=== PATIENT | male | born 1935 | race Caucasian/White ===

== ENCOUNTER 2017-02-10 11:10 | Inpatient (IN) | payer OTHER ==
[~2017-02-10] VITALS: Ht 170.2 cm; Wt 92.1 kg
--- NOTE | ~2017-02-10 | HC ---
[facility] [place] [address] CONSULTATION Name: ARLINE COLE Room #: 236-P [facility] IN M.R.#: [id number] Admission: 02/10/17 Attend Phys: Usman Tabor MD Discharge: Date of : 35 Report #: [id number] THIS REPORT FOR: //name// CC: Usman Casas REASON FOR CONSULTATION: Acute kidney injury post coronary artery bypass graft. REASON FOR THE PRESENTATION: Chest pain. HISTORY OF PRESENT ILLNESS: The patient is an 81-year-old who is not able to provide me with history as he is currently intubated and sedated. All of the details of the history were obtained from the charts. He is an 81-year-old who was transferred from [facility]. He had a cardiac catheterization that revealed significant 3-vessel disease. He had unstable angina symptoms. As I have stated, cardiac catheterization revealed a 3-vessel disease and the patient underwent coronary artery bypass graft procedure on the . He also had a left atrial Spencer-Maze procedure with a left atrial appendage ligation. The patient is not known to have any previous kidney problems. In fact, his creatinine preoperatively was 0.9. Unfortunately, the patient developed significant hypotension in the postoperative period and he ended up having a right-sided hemothorax. Chest tube was placed and he had to be reintubated yesterday. Because of the hypertension his creatinine has drifted up significant and was up to 1.9 this morning. I was consulted to manage his acute kidney injury. PAST MEDICAL HISTORY: 1. Hypertension. 2. Coronary artery disease. 3. Atrial fibrillation. 4. Collado esophagus. SOCIAL HISTORY: Retired mailman. Never a smoker. No drug or alcohol abuse. FAMILY HISTORY: Daughter had coronary artery disease. REVIEW OF SYSTEMS: I was not able to obtain the review of systems from the patient as he is currently intubated. MEDICATIONS: The patient is currently on the followin. Lasix. 2. Metoprolol. 3. Morphine. 4. Half normal saline. 5. Pepcid. 6. Potassium. 7. Magnesium. [address] [address] CONSULTATION Name: ARLINE COLE Fabio Room #: 236-P [facility] IN ..#: [id number] Admission: 02/10/17 Attend Phys: Usman Tabor MD Discharge: Date of : 35 Report #: [id number] Outpatient medications included the followin. Lisinopril. 2. Omeprazole. PHYSICAL EXAMINATION: GENERAL: The patient is intubated on Levophed. VITAL SIGNS: Blood pressure is 115/47, temperature 36.4, pulse rate is 61. HEAD AND NECK: No jugular venous distention, no bruit, no thyromegaly. CHEST: Decreased air entry bilaterally, scars from the surgery. Chest tubes and pericardial tubes are in. CARDIOVASCULAR: Regular with no rub detected. ABDOMEN: Soft, nontender. LOWER EXTREMITIES: No edema. LABORATORY VALUES: Reviewed. Creatinine is up to 1.9 from 1.7 yesterday. Imaging including his chest x-ray were reviewed. ASSESSMENT, IMPRESSION, PLAN: 1. Acute kidney injury. 2. Hypotension. 3. Status post coronary artery bypass graft with a modified Spencer-Maze procedure. 4. Hemothorax. 5. The patient's acute kidney injury is well explained by the hypotensive episodes he went through. 6. Volume resuscitation. 7. Blood transfusion. 8. P.r.n. diuretics. 9. Avoid nephrotoxins. 10. Watch blood pressure and avoid further hypotensive episode. 11. Defer the management of his post-coronary artery bypass graft course to the surgical team. <ELECTRONICALLY SIGNED> By: Jazmine Chiu MD 02/16/17 0821 1322 1744 Jazmine Chiu MD /nt
--- NOTE | ~2017-02-10 | S ---
[facility] [address] [place] [address] SURGICAL PATH RPT PROCEDURE Name: ARLINE FLORES Room #: 236-P [facility] IN M.R.#: [id number] Admission: 02/10/17 Date of : 35 Discharge: 02/17/17 Report #: [id number] Path Case #: [id number] PATHOLOGY REPORT COLLECTION DATE: 02/17/2017 RECEIVED DATE: 02/17/2017 SUBMITTING PHYS: Dr. Mary Montgomery OTHER PHYS: SPECIMEN(S) RECEIVED: A.Peripheral smear * * * * * * * * * * * * FINAL DIAGNOSIS: Peripheral blood smear: - Moderate normocytic anemia, mild leukocytosis/neutrophilia with mild left shift and moderate thrombocytopenia with circulating nucleated red blood cells. (see comment) COMMENT: Overall, the peripheral blood has moderate normocytic anemia, mild leukocytosis/neutrophilia with mild left shift and moderate thrombocytopenia. Occasional nucleated red blood cells are also seen. The etiology of the findings is unclear based entirely on slide review. Potential causes of normocytic anemia include anemia of chronic disease, treated and/or compensated vitamin and mineral deficiencies, acute blood loss, dilutional and primary bone marrow disorders. Potential causes of leukocytosis/neutrophilia with mild left shift include infections, drug reactions, and other inflammatory disorders. Potential causes of thrombocytopenia include immune and non-immune platelet destruction, drug and/or toxic exposures, blood loss, dilutional, and primary bone marrow disorders. Correlation with clinical history and additional laboratory data is recommended. (CLW:; 02/17/2017) PATHOLOGIST: Enedelia Fitzpatrick M.D. REPORT ELECTRONICALLY SIGNED BY: Enedelia Fitzpatrick M.D. DATE/TIME: 02/17/2017 21:48 * * * * * * * * * * * * MICROSCOPIC DESCRIPTION: CBC Data (02/17/17): WBC 14,800 /uL, RBC 3.09, hemoglobin 9.7 g/dL, hematocrit 28.7%, MCV 92.7 fL, MCH 31.4 pg, MCHC 33.9 g/dL, RDW 13.7%. Platelet count 74,000 /uL. White blood cell differential: segs 78.8%, lymphs 10.6%, monos 10.2%, eos 0.2%, basos 0.2%, metas 3%, and 7 NRBCs/100 WBCs. Peripheral Blood Smear: [address] [address] SURGICAL PATH RPT PROCEDURE Name: ARLINE FLORES Room #: 236-P [facility] IN .R.#: [id number] Admission: 02/10/17 Date of : 35 Discharge: 02/17/17 Report #: [id number] Path Case #: [id number] Cytomorphological examination of the Shukla's stained peripheral blood smear confirms the provided data. Red blood cells show moderate normocytic anemia with mild anisocytosis. No significant poikilocytosis is identified. No schistocytes or microspherocytes are seen. White blood cells are mildly increased in number. They are predominantly segmented neutrophils and are without significant dyspoiesis. There is a mild left shift with occasional metamyelocytes noted on scanning. No blasts or Jose rods are seen. Lymphocytes are predominantly small, round, and mature appearing with condensed chromatin and scant cytoplasm with admixed large granular lymphocytes. Monocytes are mature. Platelets are moderately decreased in number and mainly normal in morphology with rare larger platelets noted. Scattered nucleated red blood cells are seen. GROSS PATHOLOGY: Received are two Shukla's stained peripheral blood smear slides labeled, "Arline Flores" (CLW:mgclement; 02/17/2017) CLINICAL HISTORY: 81 year-old man with anemia, leukocytosis, and thrombocytopenia. Morphologic review of the peripheral blood smear is requested by the patient's physician. INITIAL CPT CODE(S): A; [place] Professional services performed by [facility] at [facility] [address], [place] [address] Technical services performed by [facility] at [address] [place] [address], [address], [place] [address]. [facility] [address] [place] [address] PHONE: [phone] DIRECTOR: Dsuty Guidry M.D. * * * END OF REPORT * * *
--- NOTE | ~2017-02-10 | O ---
[facility] [place] [address] OPERATIVE REPORT Name: ARLINE COLE Room #: 236-P [facility] IN M.R.#: [id number] Admission: 02/10/17 Attend Phys: Usman Tabor MD Discharge: Date of : 35 Report #: [id number] THIS REPORT FOR: //name// CC: Usman Casas DATE OF SERVICE: 02/12/2017 PREOPERATIVE DIAGNOSES: 1. Coronary artery disease. 2. Unstable angina. 3. Atrial fibrillation/flutter. 4. Mild cardiomyopathy. POSTOPERATIVE DIAGNOSES: 1. Coronary artery disease. 2. Unstable angina. 3. Atrial fibrillation/flutter. 4. Mild cardiomyopathy. OPERATIVE PROCEDURE PERFORMED: 1. Coronary artery bypass grafting x 3 with left internal mammary artery to the LAD, a left internal mammary artery Y graft to diagonal vessel, and saphenous vein graft to PDA. 2. Left atrial modified Spencer maze procedure. 3. Left atrial appendage ligation with AtriClip device. SURGEON: Alpesh Guardado MD CRANE MAN: ULYSSES ANESTHESIA: General. OPERATIVE INDICATIONS: The patient is an 81-year-old male who has presented with symptoms of chest pain with minimal exertion. The patient had been experiencing chest pain for approximately 7 months now. He underwent evaluation at [facility] and found to have severe multivessel coronary artery disease, complete occlusion of the right coronary artery, high grade stenosis in the LAD and diagonal and a very small nondominant circumflex coronary system. The patient had evidence of cardiomyopathy present. The ejection fraction noted of about 45-50%. The patient also was noted to be in atrial fib/atrial flutter preoperatively, but it is of an undetermined length of period. The patient was transferred to [facility], maintained on a heparin drip and brought to the operating room now for coronary artery bypass grafting and left atrial ablation after informed consent was obtained. [facility] [address] [place] [address] OPERATIVE REPORT Name: ARLINE COLE Room #: 236-P [facility] IN [facility]#: [id number] Admission: 02/10/17 Attend Phys: Usman Tabor MD Discharge: Date of : 35 Report #: [id number] OPERATIVE SUMMARY: The patient was brought into the operating room and placed on the OR table in supine position. After anesthesia was induced via the general endotracheal route and monitoring lines have been positioned, the patient was prepped and draped in sterile fashion with chlorhexidine. A median sternotomy incision was made. The left internal mammary artery was harvested in standard fashion. Concomitantly, saphenous vein was harvested from the left lower extremity using endoscopic technique. We opened the pericardium systemically, anticoagulated the patient with heparin. Cannulae were placed in ascending aorta and the right atrium. An antegrade cardioplegic cannula was positioned. Cardiopulmonary bypass was begun. We then placed a retrograde cardioplegia cannula. Under low flow conditions, the aorta was crossclamped and the heart was arrested with approximately 500 mL cold antegrade cardioplegia. We encountered distention of the left ventricle due to the presence of aortic insufficiency, which was felt to be mild to moderate preoperatively. We then switched cardioplegia to retrograde and obtained diastolic arrest. We continued to give cardioplegia throughout the rest of this case both retrograde and antegrade down grafts and the antegrade down the aortic root. We first performed left atrial ablation. We performed albation lines around each pulmonary vein sets. We connected the pulmonary vein sets superiorly and inferiorly to create a box. We set one line up to the left atrial appendage and one encircling the left atrial appendage. We later performed the isthmus line after the retrograde catheter had been removed. At this time, also we placed an AtriClip device on the left atrial appendage. We then opened up the coronary vessels looking at the PDA first, a large vessel, greater than 2 mm in size. We took a segment of saphenous vein and anastomosed it to the PDA in end-to-side fashion with 7-0 Prolene. This vein segment was short as the vein became sclerotic and small. We had another segment of vein that was larger and we used it to anastomose to the ascending aorta and this was done with 6-0 Prolene. Next, we positioned the heart for grafting the LAD and the diagonal. We took the distal aspect of the left internal mammary artery and we grafted it in end-to-side fashion to the diagonal vessel. We amputated the vessel about 2 cm proximal and then opened up the LAD. This too was a good vessel size about 1.9-2 mm in size. We anastomosed the PONCE in situ to the LAD. Once this was completed, we tacked the pedicle to the epicardium with 6-0 Prolene. We then anastomosed the PONCE graft to the diagonal to the in situ PONCE and this was done in end-to-side fashion with 7-0 Prolene. Warm cardioplegia was given both retrograde and antegrade. Care was taken to deair the ascending aorta and the vein graft. The crossclamp was released to begin the period of reperfusion. Prior to releasing crossclamp, the two segments of saphenous vein were sewed together. We placed atrial and ventricular pacing wires and we paced the patient initially. The patient was rewarmed to 37 degree centigrade and 3 successive doses of calcium and a single dose of magnesium were given over 3-5 minute intervals. After a suitable period of reperfusion, the lungs were reinflated. The patient was weaned from cardiopulmonary bypass on a low dose [facility] [address] [place] [address] OPERATIVE REPORT Name: ARLINE COLE Room #: 236-P [facility] IN M.R.#: [id number] Admission: 02/10/17 Attend Phys: Usman Tabor MD Discharge: Date of : 35 Report #: [id number] Dobutrex infusion. We later added Primacor infusion. Protamine was given to reverse the heparin, decannulation was affected. Once satisfactory hemostasis was achieved, we placed two 32-Mauritanian chest tubes in the anterior mediastinum and 24 Dru drain in left pleural space bringing them all out through separate stab incisions. The sternum was closed with #7 wire. The fascia, subcutaneous and skin were closed in multiple layers with absorbable suture. The procedure was completed, the patient was taken to the ICU in stable condition. Cardiopulmonary bypass time and cross clamp time is not available to me at the time of this dictation. <ELECTRONICALLY SIGNED> By: Alpesh Guardado MD 02/13/17 1126 1537 1612 Alpesh Guardado MD /nt
--- NOTE | ~2017-02-10 | D ---
[facility] [place] [address] DISCHARGE SUMMARY Name: ARLINE COLE Room #: 236-P [facility] IN M.R.#: [id number] Admission: 02/10/17 Attend Phys: Usman Tabor MD Discharge: 02/17/17 Date of : 35 Report #: [id number] THIS REPORT FOR: //name// CC: Usman Tabor Dr. Co Dr. Ulises Atkinson MD [facility] Alpesh Casas DATE OF SERVICE: 02/17/2017 DIAGNOSES: 1. Coronary artery disease status post coronary artery bypass grafting x 3. 2. Right lower extremity ischemia, acute. 3. Attempt ____ right femoral artery embolectomy, intraoperative arteriography on 02/17/2017. 4. Thrombocytopenia. 5. Atrial flutter. 6. Status post left atrial appendage ligation and maze. 7. Mild cardiomyopathy with ejection fraction of 40%. 8. Acute kidney injury, which is resolved. 9. Postoperative hyperglycemia, hemoglobin A1c of 5.9. 10. Anemia, postop. 11. Postop ventilator dependent. 12. ____. PROCEDURES: 1. CABG x 3. 2. Right popliteal artery embolectomy, intraoperative arteriography on 02/17/2017. HOSPITAL COURSE: The patient is an 81-year-old male with history of gastroesophageal reflux disease, recent diagnosis of atrial flutter, hypertension, Collado's esophagus, was transferred to [facility] from [facility] after undergoing diagnostic coronary catheterization. The patient was admitted with chest pain. He had a cardiac cath, which showed 3-vessel coronary artery disease. The patient was evaluated by Dr. Alpesh Guardado and the patient underwent coronary artery bypass grafting x 3 with left internal mammary artery to the LAD, left internal mammary artery graft to diagonal vessel and saphenous vein graft to PDA along with left atrial modified maze procedure and left atrial appendage ligation with AtriClip device on 02/12/2017. The patient was seen postoperatively by Dr. Rainey from Pulmonary. Postoperatively, the patient developed right pleural effusion, subsequent chest tube was placed and he was reintubated. The patient's hospital course was also marked by renal failure that has improved and his creatinine is back to normal. [address] [address] DISCHARGE SUMMARY Name: ARLINE COLE Room #: 236-P [facility] IN M.R.#: [id number] Admission: 02/10/17 Attend Phys: Usman Tabor MD Discharge: 02/17/17 Date of : 35 Report #: [id number] His echocardiogram showed mild cardiomyopathy, EF of 40%. This morning, the patient was noticed to have a right cold foot. He was diagnosed with acute right lower extremity ischemia. Subsequently, he was taken for OR immediately by Dr. Guardado. A right femoral embolectomy, intraoperative arteriography was performed. Dr. Guardado was unable to pass embolectomy catheter pass the mid tibial level. The patient was recommended to be transferred to [facility]. Dr. Guardado has made all the arrangements and the patient is being transferred to [facility]. The patient also found to be thrombocytopenic and the patient was seen by Dr. Montgomery from Hematology. <ELECTRONICALLY SIGNED> By: Ivan Haddad MD 02/18/17 1706 1702 1804 Ivan Haddad MD /nt
--- NOTE | ~2017-02-10 | HC ---
[facility] [place] [address] CONSULTATION Name: ARLINE COLE Room #: 236-P [facility] IN M.R.#: [id number] Admission: 02/10/17 Attend Phys: Usman Tabor MD Discharge: 02/17/17 Date of : 35 Report #: [id number] THIS REPORT FOR: //name// CC: Usman Casas CARDIOLOGY CONSULTATION HISTORY OF PRESENT ILLNESS: I was asked by Dr. Liang to see this 81-year-old white male in cardiology consultation for evaluation and treatment postoperatively following bypass graft surgery yesterday. He had multivessel bypass. I believe at least 3 vessels and possibly as many as 5 were bypassed. His LAD, circumflex and right coronaries were bypassed. He probably had grafts to his both obtuse marginals and the first diagonal. He was extubated last night but has not done well from a respiratory point of view today and may well need to be intubated later today. He is still on BiPAP. Last night, he apparently had some issues with cardiac output and got placed on milrinone. Today, his cardiac output is apparently better, and I believe he is off milrinone. He is on amiodarone. He has apparently had a past history of atrial fibrillation but was in atrial fibrillation when he came in the [facility] last week and had atrial fibrillation and atrial flutter. He had angina at rest at that time. He had had quite a bit of dyspnea on exertion that was new. He had had recently an endoscopy and was found to have GERD and Collado's esophagus. His ejection fraction on his recent cardiac catheterization was 40%. Currently, he appears to be in atrial flutter with a fairly well-controlled ventricular rate at 96. He is on amiodarone p.o. He is also getting Lopressor 25 mg b.i.d. He has some respiratory failure. His chest x-ray showed bibasilar atelectasis and small effusions, right greater than left today. The [place] catheter was retracted into the right ventricle on this morning's x-ray. His intake has exceeded his output, and he may require some diuretics. PAST MEDICAL HISTORY: Essentially as described above. He has had the above problems. His medications have been omeprazole 20 mg daily, lisinopril 20 mg daily and Tylenol p.r.n. He has had a history of hypertension and seasonal allergies. He cannot give much of a history currently. He is restless and on BiPAP and cannot really talk. REVIEW OF SYSTEMS: Unobtainable but was fairly unremarkable when he was seen at [place] on 02/08/2017. SOCIAL HISTORY: Unremarkable. He has not smoked and does not drink. FAMILY HISTORY: There is significant family history of coronary heart disease. [facility] [address] [place] [address] CONSULTATION Name: ARLINE COLE Room #: 236-P [facility] IN M.R.#: [id number] Admission: 02/10/17 Attend Phys: Usman Tabor MD Discharge: 02/17/17 Date of : 35 Report #: [id number] ALLERGIES: He has no known allergies. HOME MEDICATIONS: Also include Chlor-Trimeton 4 mg q. 4 hours p.r.n. PHYSICAL EXAMINATION: GENERAL: He presents as a well-developed, well-nourished white male in no acute distress. He is on BiPAP. VITAL SIGNS: Pulse is 96 and slightly irregular, blood pressure is 153/54, respirations are 37 and irregular, O2 sat is 96% and he is clinically afebrile. HEENT: His head is atraumatic. Eyes are clear. NECK: Supple. There is no jugular venous distention or hepatojugular reflux. Thyroid is not enlarged. There is no adenopathy. SKIN: Warm and dry. Mucous membranes are moist. LUNGS: Fairly clear to auscultation. Breath sounds were decreased in the bases. Breath sounds were slightly coarse. HEART: Revealed normal first and second heart sound. There was no S4. There was no S3. There were no murmurs, rubs, thrills, heaves or gallops. PMI is not displaced. Rhythm was irregularly irregular. Rate was about 90 when I examined him. PMI is not displaced. ABDOMEN: Soft, flat, nontender, no palpable masses, no organomegaly. EXTREMITIES: Reveal no cyanosis, clubbing or edema. NEUROLOGIC: The patient was said to mentate normally. He could not talk normally. He did move all extremities normally. LABORATORY DATA: His EKG today shows atrial fibrillation with a rapid ventricular response at 120. It could represent atypical atrial flutter with 3:1 block. There is possible left ventricular hypertrophy with nonspecific ST-T abnormalities. Compared to his preop, the rate is faster. The nonspecific ST-T wave abnormalities are slightly worse. Chest x-ray shows bibasilar atelectasis and small effusions, right greater than left. IMPRESSION: 1. Coronary artery disease. 2. Status post coronary artery bypass graft surgery. 3. Atrial fibrillation and atrial flutter. 4. Angina. 5. Respiratory failure. 6. Essential hypertension. 7. Gastroesophageal reflux disease. 8. Collado's esophagus. RECOMMENDATION: I would continue his usual postop care with what he is currently getting. I would probably add a very small dose of IV enalapril to improve his cardiac output. I would switch him to Toprol from the Lopressor for his LV dysfunction. I would continue the amiodarone. [facility] [address] [place] [address] CONSULTATION Name: ARLINE COLE Fabio Room #: 236-P [facility] IN .R.#: [id number] Admission: 02/10/17 Attend Phys: Usman Tabor MD Discharge: 02/17/17 Date of : 35 Report #: [id number] Thank you very much for asking me to see this patient. If there are any questions, please feel free to contact me. <ELECTRONICALLY SIGNED> By: Juan Cortez MD, [facility] 02/18/17 1605 1700 [id number] Juan Cortez MD, [facility] /nt
--- NOTE | ~2017-02-10 | EKG ---
[address] [place] [address] ELECTROCARDIOGRAM REPORT Name: ARLINE COLE Room #: 218-P ADM IN M.R.#: [id number] Admission: 02/10/17 Attend Phys: Randy iLang MD Discharge: Date of : 35 Report #: [id number] THIS REPORT FOR: //name// [facility] Test Date: 2017-02-10 Test Time: 18:20:09 Pat Name: ARLINE COLE Department: Room: 218 P Gender: M Lap Polisher: Neville OCHOA : 1935 Requested By: Usman Tabor Order Number: [id number] MD: Dom Palacios Measurements Intervals [place] Rate: 60 P: ID: QRS: -5 QRSD: 124 T: 176 QT: 418 QTc: 418 Interpretive Statements Atrial flutter with predominant 4:1 AV block Ventricular premature complex LVH with secondary repolarization abnormality Compared to ECG 02/27/2010 08:34:48 Sinus bradycardia no longer present Electronically Signed On 02-11-2017 7:56:48 CDT by Dom Palacios [email or web address] <ELECTRONICALLY SIGNED> By: Dom Palacios MD, [facility] 02/11/17 0756 1820 1820 Dom Palacios MD, [facility] /EPI
--- NOTE | ~2017-02-10 | EKG ---
[address] [address] ELECTROCARDIOGRAM REPORT Name: ARLINE COLE Room #: 236-P ADM IN M.R.#: [id number] Admission: 02/10/17 Attend Phys: Usman Tabor MD Discharge: Date of : 35 Report #: [id number] THIS REPORT FOR: //name// [facility] Test Date: 2017-02-12 Test Time: 16:47:12 Pat Name: ARLINE COLE Department: Room: 236 Gender: M Restrictive Preparation Operator: ISRA : 1935 Requested By: Alpesh Guardado Order Number: [id number] MD: Dom Palacios Measurements Intervals [place] Rate: 65 P: [place]: QRS: 19 QRSD: 124 T: -10 QT: 626 QTc: 652 Interpretive Statements Atrial fibrillation LVH with repolarization abnormality Compared to ECG 02/10/2017 18:20:09 No significant change was found Electronically Signed On 02-16-2017 9:11:34 CDT by Dom Palacios [email or web address] <ELECTRONICALLY SIGNED> By: Dom Palacios MD, [facility] 02/16/17 0911 46 46 Dom Palacios MD, [facility] /EPI
--- NOTE | ~2017-02-10 | HC ---
[facility] [place] [address] CONSULTATION Name: ARLINE COLE Room #: 236-P [facility] IN M.R.#: [id number] Admission: 02/10/17 Attend Phys: Usman Tabor MD Discharge: Date of : 35 Report #: [id number] THIS REPORT FOR: //name// CC: Usman Casas PULMONARY CONSULTATION PRIMARY CARE PHYSICIAN: Dr. Laurel Casas. REFERRAL PHYSICIAN: ____ REASON FOR REFERRAL: Hypoxia. HISTORY OF PRESENT ILLNESS: The patient is an 81-year-old white male who was transferred from [facility] for coronary artery revascularization surgery. The patient was recently found to have 3-vessel disease. The patient underwent surgery earlier today. He had coronary bypass surgery x 3. When he returned to the ICU, the patient was found to be hypoxic requiring high FiO2. A pulmonary consultation was requested. Family is not present at this time. Records suggest that the patient denies any history of chronic lung disease. The patient has never smoked in the past. PAST MEDICAL HISTORY: As mentioned above including recently diagnosed atrial flutter, gastroesophageal reflux disease, hypertension, seasonal allergies, Collado esophagus. ALLERGIES: None noted. HOME MEDICATIONS: Had been omeprazole, Zestril, chlorpheniramine. FAMILY HISTORY: Notable for coronary artery disease in his daughter. Status of the parents unknown. SOCIAL HISTORY: The patient is a lifetime nonsmoker. No history of tobacco use. He is a retired mailman. REVIEW OF SYSTEMS: As mentioned above. Up to recent admission, he has been relatively active. Otherwise, review of systems is deferred as the patient is intubated. PHYSICAL EXAMINATION: GENERAL: The patient is arousing from general anesthesia. He is on some [facility] [address] [place] [address] CONSULTATION Name: ARLINE COLE Room #: 236-P [facility] IN [facility].#: [id number] Admission: 02/10/17 Attend Phys: Usman Tabor MD Discharge: Date of : 35 Report #: [id number] sedation. VITAL SIGNS: Temperature is 97 degrees Fahrenheit, pulse is 53, respiratory rate is 16, blood pressure is 131/62 mmHg, saturation is 97%. HEENT: Normocephalic, atraumatic. NECK: Supple, without any lymphadenopathy or thyromegaly. CHEST: Breath sounds are clear anteriorly. No obvious wheezes or rales. CARDIOVASCULAR: Heart sounds are distant. No obvious murmurs or gallop. Pulses are 2+/4+ bilaterally. ABDOMEN: Soft, nontender, no organomegaly or masses felt. GENITOURINARY: Deferred. RECTAL: Deferred. EXTREMITIES: There is no edema, cyanosis or clubbing. NEUROLOGIC: Slowly awakening from general anesthesia. Eyes are still closed. He is moving both his upper extremities. LABORATORY DATA: Portable chest x-ray postop revealed bibasilar interstitial infiltrates, atelectasis, haziness along the right lung field. ET tube, central line, chest tubes in appropriate position. Sodium 139, potassium 4.3, chloride 109, CO2 is 25, BUN is 15, creatinine is 1.1. WBC 11,200; hemoglobin is 10.8; platelets are 70,000; platelets on admission were 177,000. INR is 1.3. Arterial blood gas revealed pH 7.42, PCO2 35, pO2 of 164 on FiO2 100%. IMPRESSION: 1. Coronary artery disease, status post coronary artery bypass x 3, ischemic cardiomyopathy with an ejection fraction of approximately 40%. 2. Acute hypoxic respiratory failure, expectant. Current ventilator settings are reviewed. He is currently on FiO2 100%, PEEP around 10. Gas exchange has improved since arrival to the Intensive Care Unit. We will try to wean FiO2 to keep saturation 90%. We will try to wean PEEP as needed. 3. Hypertension. 4. Recent onset of atrial fibrillation/flutter. 5. Collado esophagus. RECOMMENDATION: We will continue mechanical ventilation. Wean FiO2 for saturation 92% above. We will leave the PEEP at 10 and titrate as needed. We will try to wean down FiO2 to less than 60% as soon as possible to avoid oxygen toxicity. Check followup chest x-ray. Thank you for this consultation. <ELECTRONICALLY SIGNED> By: Bennie Hahn MD 02/15/17 1240 1618 0026 Bennie Hahn MD /nt
--- NOTE | ~2017-02-10 | EKG ---
[address] [place] [address] ELECTROCARDIOGRAM REPORT Name: ARLINE COLE Room #: 236-P ADM IN M.R.#: [id number] Admission: 02/10/17 Attend Phys: Usman Tabor MD Discharge: Date of : 35 Report #: [id number] THIS REPORT FOR: //name// [facility] Test Date: 2017-02-13 Test Time: 07:46:50 Pat Name: ARLINE COLE Department: Room: 236 P Gender: M Stable Manager: santiago : 1935 Requested By: Alpesh Guardado Order Number: [id number] MD: Dom Palacios Measurements Intervals [place] Rate: 120 P: 268 [place]: 129 QRS: -2 QRSD: 120 T: 178 QT: 325 QTc: 460 Interpretive Statements Probable atrial flutter versus atrial tachycardia 2:1 AV conduction Probable LVH with secondary repol abnrm Baseline wander in lead(s) V5 Compared to ECG 02/10/2017 18:20:[address] and T wave abnormality is more pronounced Heart rate is increased Electronically Signed On 02-16-2017 17:46:26 CDT by Dom Palacios [email or web address] <ELECTRONICALLY SIGNED> By: Dom Palacios MD, [facility] 02/16/17 1746 0746 0746 Dom Palacios MD, [facility] /EPI
--- NOTE | ~2017-02-10 | H ---
[facility] [place] [address] HISTORY AND PHYSICAL Name: ARLINE COLE Room #: 218-P ADM IN M.R.#: [id number] Admission: 02/10/17 Attend Phys: Randy Liang MD Discharge: Date of : 35 Report #: [id number] THIS REPORT FOR: //name// CC: Randy Casas DATE OF SERVICE: 02/10/2017 CHIEF COMPLAINT: Chest pain. HISTORY OF PRESENT ILLNESS: The patient is a very pleasant 81-year-old gentleman transferred to [facility] today from [facility] where he has undergone diagnostic coronary catheterization, which has revealed a significant three-vessel CAD, which requires bypass surgery and has been admitted for further evaluation for the same by the Cardiothoracic Surgery Service. 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 He felt this was in his epigastric/left lower chest region and initially suspected this was related to GI issues, hence he underwent an endoscopy where he was noted to have Collado's esophagus; however, subsequently he was noted to be in atrial flutter and sent to the emergency room at [facility]. During the course of his evaluation at [facility], he subsequently undergone coronary catheterization, which revealed multivessel coronary artery disease and has been sent here for further evaluation. When seen by me today, he is in no distress; however, he still continues to complain of intermittent chest pain, which he reports is not substantially changed in the last 7 weeks. He denies significant dyspnea. He denies fevers, chills, nausea, vomiting, diarrhea, dizziness, headaches, skin rashes or other problems. PAST MEDICAL HISTORY: Includes: 1. GERD. 2. Recently diagnosed atrial flutter. 3. Hypertension. 4. Seasonal allergies. 5. Collado esophagus. MEDICATION ALLERGIES: None reported. HOME MEDICATIONS: Refer to reconciliation note. SOCIAL HISTORY: He is a retired mailman. He has never been a smoker. No significant alcohol use reported. No drug use. [place]. [address] [address] HISTORY AND PHYSICAL Name: ARLINE COLE Room #: 218-P [facility] IN ..#: [id number] Admission: 02/10/17 Attend Phys: Randy Liang MD Discharge: Date of : 35 Report #: [id number] FAMILY HISTORY: His daughter has had coronary artery disease requiring intervention. REVIEW OF SYSTEMS: Twelve-point review of systems performed, negative except as mentioned in the history of present illness. PHYSICAL EXAMINATION: VITAL SIGNS: When seen today, the patient's vitals, he is afebrile, blood pressure 144/75, respiratory rate 17, O2 sat 98 on room air, pulse of 70. GENERAL: Awake, alert, no acute distress. HEENT: Unremarkable. NECK: No JVD or thyromegaly. CARDIOVASCULAR: S1 and S2 present, regular. ABDOMEN: Soft, nontender, nondistended. EXTREMITIES: Without edema. NEUROLOGIC: Awake, alert. No obvious focal findings. SKIN: Unremarkable for rash or lesions. LABS AND INVESTIGATIONS: 1. Reviewed from [facility], coronary catheterization revealed left main 50% ostial tapering LAD left with 30% narrow proximally, then diffusely diseased with 90% narrowing after takeoff of first diagonal 2. First diagonal with long tubular 90% stenosis proximally 3. Second diagonal 50% narrowing distally, circumflex mild plaquing without significant stenosis. OM1 90% stenosed at ostium, 95% stenosed mid portion. OM2 occluded in the mid portion, distal portion fill by [id number] collaterals. The right coronary ectatic, diffusely diseased proximally, 90% mid stenosis vessel occluded after small acute marginal. Right PDA large vessel free from significant disease. Left ventriculography with diminished EF of 40%. 4. EKG shows atrial flutter, which is rate controlled. 5. Labs: CBC with WBC count 9.3, hemoglobin 15.9, platelets of 172. Chemistry: Sodium 141, potassium 4.2, chloride 106. ____ BUN and creatinine 15 and 0.9, total bilirubin minimally elevated at 2.2, alkaline phosphatase is 54, glucose of 116. Troponin initially less than 0.04, subsequently 0.1. Urinalysis unremarkable. Chest x-ray with no acute findings. ASSESSMENT AND PLAN: This is an 81-year-old gentleman presenting with coronary artery disease and with need for probable CAB. Coronary artery disease. At the present time, we will continue aspirin and check a lipid profile as well as await further recommendations from cardiothoracic surgery and Cardiology regarding definitive intervention and treatment. 2. Gastroesophageal reflux disease. Continue Protonix. 3. Atrial flutter, presently rate controlled. Further treatment and management per Cardiology. 4. Mild cardiomyopathy in the setting of coronary artery disease with EF of [facility] [address] [place] [address] HISTORY AND PHYSICAL Name: ARLINE COLE Room #: 218-P ADM IN .R.#: [id number] Admission: 02/10/17 Attend Phys: Randy Liang MD Discharge: Date of : 35 Report #: [id number] 40%. 5. DVT prophylaxis with Lovenox. 6. Hyperglycemia. We will check an A1c. The patient will be monitored in the Cardiac Critical Care Unit with further treatment as needed. <ELECTRONICALLY SIGNED> By: Usman Tabor MD 02/11/17 1206 1802 1843 Usman Tabor MD /nt
[~2017-02-10 11:10] MED LIST: CALCIUM 500+D1 EAC2 PO; CIPROFLOXACIN500 M1 PO; FEXOFENADINE H180 MG PO; LISINOPRIL10 MG PO; OMEPRAZOLE40 MG PO; TAMSULOSIN HCL0.4 MG PO
[2017-02-10 17:08] VITALS: BP 144/75
[2017-02-10] MEDS ORDERED: ALLERGY 4-HOUR4 MG PO (18:17)
[2017-02-10] MEDS ORDERED: TYLENOL325 MG PO (18:18)
[2017-02-10 18:49] LABS: URINE BILIRUBIN NEGATIVE (Negative); URINE BLOOD NEGATIVE (Negative); URINE COLOR YELLOW; URINE GLUCOSE-RANDOM* NEGATIVE (Negative); URINE KETONES NEGATIVE (Negative); URINE LEUKOCYTES-REFLEX NEGATIVE (Negative); URINE PROTEIN (DIPSTICK) NEGATIVE (Negative); URINE SPECIFIC GRAVITY 1.025 (1.003-1.035)
[2017-02-10 19:35] LABS: HEMATOCRIT 47.3 % (42.0-52.0); HEMOGLOBIN 15.8 gm/dL (14.0-18.0); MCHC 33.3 g/dL (28.0-37.0); MCV 92.9 fL (80.0-100.0); RBC 5.1 mil/uL (4.50-6.00); RDW 13.3 % (10.5-14.5); WBC 9.5 thou/uL (4.0-11.0)
[2017-02-10 19:47] LABS: APTT 27.2 Seconds (24.5-32.8); INR 1.1; PROTIME 10.9 Seconds (9.3-11.4)
[2017-02-10 20:59] VITALS: BP 132/66
[2017-02-11 00:07] VITALS: BP 142/75
[2017-02-11 02:09] LABS: GLYCOHEMOGLOBIN (HGB A1C) 5.9 % (4.8-5.6)
[2017-02-11 04:15] VITALS: BP 137/69
[2017-02-11 04:50] LABS: HEMATOCRIT 42.9 % (42.0-52.0); HEMOGLOBIN 14.8 gm/dL (14.0-18.0); MCH 31.6 pg (26.0-34.0); MCHC 34.5 g/dL (28.0-37.0); MCV 91.8 fL (80.0-100.0); RBC 4.68 mil/uL (4.50-6.00); RDW 13.2 % (10.5-14.5); WBC 8.6 thou/uL (4.0-11.0)
[2017-02-11 05:12] LABS: ANION GAP 9 mmol/L (7-16); BUN 15 mg/dL (7-18); CALCIUM 8.7 mg/dL (8.5-10.1); CHLORIDE 104 mmol/L (98-107); CHOLESTEROL 140 mg/dL (<200); CO2 24 mmol/L (21-32); CREATININE 0.9 mg/dL (0.7-1.3); GLUCOSE 125 mg/dL (74-106); HDL CHOLESTEROL 35 mg/dL (>40); LDL CHOLESTEROL 95 mg/dL (<100); POTASSIUM 3.9 mmol/L (3.5-5.1); SODIUM 137 mmol/L (136-145); TRIGLYCERIDE 53 mg/dL (<150); VLDL 11 mg/dL (<40)
[2017-02-11 07:59] VITALS: BP 121/58
[2017-02-11 12:00] VITALS: BP 112/60
[2017-02-11 16:00] VITALS: BP 113/55
[2017-02-11 20:20] VITALS: BP 133/66
[2017-02-12] VITALS (19 sets, daily range): BP systolic 56–133; BP diastolic 36–76
[2017-02-12 13:17] LABS: POC BE 0 mmol/L (-2.0 to +3.0); POC CA IONIZED 5.4 mg/dL (4.5-5.3); POC FiO2 100 %; POC GLUCOSE 134 mg/dL (70-99); POC HCO3 26.3 mmol/L (22.0-26.0); POC HEMOGLOBIN 8.2 g/dL (14.0-18.0); POC POTASSIUM 5.5 mmol/L (3.5-5.1); POC SODIUM 134 mmol/L (136-145); POC pCO2 49.6 mmHg (35.0-45.0); POC pH 7.333 (7.360-7.450)
[2017-02-12 13:17] LABS: POC BE 0 mmol/L (-2.0 to +3.0); POC CA IONIZED 4.1 mg/dL (4.5-5.3); POC FiO2 100 %; POC GLUCOSE 129 mg/dL (70-99); POC HCO3 25.3 mmol/L (22.0-26.0); POC HEMOGLOBIN 10.5 g/dL (14.0-18.0); POC POTASSIUM 4.2 mmol/L (3.5-5.1); POC SODIUM 136 mmol/L (136-145); POC pH 7.348 (7.360-7.450)
[2017-02-12 13:17] LABS: POC BE -3 mmol/L (-2.0 to +3.0); POC CA IONIZED 4.3 mg/dL (4.5-5.3); POC FiO2 100 %; POC GLUCOSE 126 mg/dL (70-99); POC HCO3 23.1 mmol/L (22.0-26.0); POC HEMOGLOBIN 10.9 g/dL (14.0-18.0); POC POTASSIUM 4.2 mmol/L (3.5-5.1); POC SODIUM 137 mmol/L (136-145); POC pCO2 46.2 mmHg (35.0-45.0); POC pH 7.307 (7.360-7.450)
[2017-02-12 13:17] LABS: POC BE -2 mmol/L (-2.0 to +3.0); POC CA IONIZED 5.8 mg/dL (4.5-5.3); POC FiO2 100 %; POC GLUCOSE 171 mg/dL (70-99); POC HCO3 23.3 mmol/L (22.0-26.0); POC HEMOGLOBIN 9.9 g/dL (14.0-18.0); POC POTASSIUM 4.3 mmol/L (3.5-5.1); POC SODIUM 139 mmol/L (136-145); POC pH 7.342 (7.360-7.450)
[2017-02-12 13:17] LABS: POC BE -4 mmol/L (-2.0 to +3.0); POC CA IONIZED 6.8 mg/dL (4.5-5.3); POC FiO2 100 %; POC GLUCOSE 139 mg/dL (70-99); POC HEMOGLOBIN 8.5 g/dL (14.0-18.0); POC SODIUM 134 mmol/L (136-145); POC pCO2 40.4 mmHg (35.0-45.0); POC pH 7.343 (7.360-7.450)
[2017-02-12 13:17] LABS: POC BE 0 mmol/L (-2.0 to +3.0); POC CA IONIZED 4.8 mg/dL (4.5-5.3); POC FiO2 100 %; POC GLUCOSE 133 mg/dL (70-99); POC HEMOGLOBIN 13.6 g/dL (14.0-18.0); POC POTASSIUM 4.7 mmol/L (3.5-5.1); POC SODIUM 136 mmol/L (136-145); POC pCO2 40.8 mmHg (35.0-45.0); POC pH 7.394 (7.360-7.450)
[2017-02-12 13:17] LABS: POC BE 2 mmol/L (-2.0 to +3.0); POC CA IONIZED 4.1 mg/dL (4.5-5.3); POC FiO2 100 %; POC GLUCOSE 123 mg/dL (70-99); POC HCO3 26.3 mmol/L (22.0-26.0); POC HEMOGLOBIN 8.2 g/dL (14.0-18.0); POC POTASSIUM 5.5 mmol/L (3.5-5.1); POC SODIUM 131 mmol/L (136-145); POC pCO2 40.6 mmHg (35.0-45.0)
[2017-02-12 13:17] LABS: POC BE -1 mmol/L (-2.0 to +3.0); POC CA IONIZED 4.7 mg/dL (4.5-5.3); POC FiO2 100 %; POC GLUCOSE 136 mg/dL (70-99); POC HCO3 24.9 mmol/L (22.0-26.0); POC HEMOGLOBIN 12.6 g/dL (14.0-18.0); POC POTASSIUM 4.3 mmol/L (3.5-5.1); POC SODIUM 137 mmol/L (136-145); POC pCO2 47.2 mmHg (35.0-45.0); POC pH 7.331 (7.360-7.450)
[2017-02-12 13:17] LABS: POC BE 3 mmol/L (-2.0 to +3.0); POC CA IONIZED 4.1 mg/dL (4.5-5.3); POC FiO2 100 %; POC GLUCOSE 131 mg/dL (70-99); POC HCO3 27.4 mmol/L (22.0-26.0); POC HEMOGLOBIN 9.2 g/dL (14.0-18.0); POC POTASSIUM 5.1 mmol/L (3.5-5.1); POC SODIUM 134 mmol/L (136-145); POC pCO2 40.2 mmHg (35.0-45.0); POC pH 7.441 (7.360-7.450)
[2017-02-12 13:17] LABS: POC BE 4 mmol/L (-2.0 to +3.0); POC CA IONIZED 4.2 mg/dL (4.5-5.3); POC FiO2 100 %; POC GLUCOSE 127 mg/dL (70-99); POC HCO3 27.9 mmol/L (22.0-26.0); POC HEMOGLOBIN 10.2 g/dL (14.0-18.0); POC POTASSIUM 5.1 mmol/L (3.5-5.1); POC SODIUM 134 mmol/L (136-145); POC pCO2 42.3 mmHg (35.0-45.0); POC pH 7.428 (7.360-7.450)
[2017-02-12 13:33] LABS: ABG SAMPLE TYPE ARTERIAL; BE(vivo) -6.7 mmol/L (-2 to +3); HCO3 18.5 mmol/L (22.0-26.0); LACTATE 1.29 mmol/L (0.5-2.0); O2(CT) 13.5 mL/dL (15.0-23.0); O2Hb 85.6 % (92.0-98.0); PO2 55.6 mmHg (80.0-100.0); STICK SITE LINE; pH 7.329 (7.360-7.450); sO2 87.2 % (92.0-98.0); tCO2 19.6 mmol/L (24.0-30.0)
[2017-02-12 13:34] LABS: TIDAL VOLUME 600 ml
[2017-02-12 13:48] LABS: HEMATOCRIT 31.3 % (42.0-52.0); MCH 31.7 pg (26.0-34.0); MCHC 34.6 g/dL (28.0-37.0); MCV 91.7 fL (80.0-100.0); RBC 3.42 mil/uL (4.50-6.00); WBC 11.2 thou/uL (4.0-11.0)
[2017-02-12 13:51] LABS: HEMOGLOBIN 10.8 gm/dL (14.0-18.0)
[2017-02-12 13:56] LABS: CALCIUM 9.5 mg/dL (8.5-10.1); CREATININE 1.1 mg/dL (0.7-1.3); POTASSIUM 4.3 mmol/L (3.5-5.1)
[2017-02-12 14:03] LABS: APTT 34.7 Seconds (24.5-32.8); FIBRINOGEN 171.8 mg/dL (210-360); INR 1.3; PROTIME 13.6 Seconds (9.3-11.4)
[2017-02-12 14:35] LABS: ABG SAMPLE TYPE ARTERIAL; BE(vivo) -1.3 mmol/L (-2 to +3); HCO3 22.6 mmol/L (22.0-26.0); LACTATE 1.91 mmol/L (0.5-2.0); O2(CT) 15.5 mL/dL (15.0-23.0); O2Hb 97.7 % (92.0-98.0); PCO2 35.1 mmHg (35.0-45.0); PO2 164.3 mmHg (80.0-100.0); STICK SITE LINE; TIDAL VOLUME 600 ml; pH 7.427 (7.360-7.450); sO2 99.2 % (92.0-98.0); tCO2 23.7 mmol/L (24.0-30.0)
[2017-02-12 17:43] LABS: HEMATOCRIT 25.5 % (42.0-52.0); MCH 30.8 pg (26.0-34.0); MCHC 33.7 g/dL (28.0-37.0); MCV 91.4 fL (80.0-100.0); RBC 2.79 mil/uL (4.50-6.00); RDW 12.7 % (10.5-14.5); WBC 15.4 thou/uL (4.0-11.0)
[2017-02-12 17:48] LABS: CALCIUM 9.4 mg/dL (8.5-10.1); CREATININE 1.4 mg/dL (0.7-1.3); HEMOGLOBIN 8.6 gm/dL (14.0-18.0)
[2017-02-12 18:05] LABS: APTT 30.3 Seconds (24.5-32.8); FIBRINOGEN 188.6 mg/dL (210-360); INR 1.2; PROTIME 12.7 Seconds (9.3-11.4)
[2017-02-12 22:00] LABS: HEMOGLOBIN 8.2 gm/dL (14.0-18.0); MCH 31.1 pg (26.0-34.0); MCHC 34.2 g/dL (28.0-37.0); MCV 91.1 fL (80.0-100.0); RBC 2.64 mil/uL (4.50-6.00); WBC 12.6 thou/uL (4.0-11.0)
[2017-02-12 23:50] LABS: ABG SAMPLE TYPE ARTERIAL; BE(vivo) -3.2 mmol/L (-2 to +3); HCO3 22.2 mmol/L (22.0-26.0); O2(CT) 12.3 mL/dL (15.0-23.0); O2Hb 92.9 % (92.0-98.0); PCO2 41.8 mmHg (35.0-45.0); PO2 77.3 mmHg (80.0-100.0); pH 7.344 (7.360-7.450); sO2 94.8 % (92.0-98.0); tCO2 23.5 mmol/L (24.0-30.0)
[2017-02-12 23:51] LABS: LACTATE 4.01 mmol/L (0.5-2.0); Pressure Support 8 cm H20; STICK SITE ALINE
[2017-02-13 04:51] LABS: ABG SAMPLE TYPE ARTERIAL; BE(vivo) -2.6 mmol/L (-2 to +3); HCO3 21.5 mmol/L (22.0-26.0); LACTATE 2.08 mmol/L (0.5-2.0); O2(CT) 11.2 mL/dL (15.0-23.0); O2Hb 86.2 % (92.0-98.0); PCO2 34.6 mmHg (35.0-45.0); PO2 53.1 mmHg (80.0-100.0); STICK SITE ALINE; pH 7.412 (7.360-7.450); sO2 88.2 % (92.0-98.0); tCO2 22.6 mmol/L (24.0-30.0)
[2017-02-13 05:22] LABS: HEMATOCRIT 24.4 % (42.0-52.0); HEMOGLOBIN 8.5 gm/dL (14.0-18.0); MCH 31.8 pg (26.0-34.0); MCHC 34.6 g/dL (28.0-37.0); MCV 91.9 fL (80.0-100.0); RBC 2.66 mil/uL (4.50-6.00); RDW 13.1 % (10.5-14.5); WBC 13.7 thou/uL (4.0-11.0)
[2017-02-13 05:35] LABS: CREATININE 1.8 mg/dL (0.7-1.3); POTASSIUM 3.8 mmol/L (3.5-5.1)
[2017-02-13 12:07] LABS: HEMATOCRIT 25.1 % (42.0-52.0); HEMOGLOBIN 8.6 gm/dL (14.0-18.0); MCH 31.3 pg (26.0-34.0); MCHC 34.3 g/dL (28.0-37.0); MCV 91.3 fL (80.0-100.0); RBC 2.75 mil/uL (4.50-6.00); WBC 17.2 thou/uL (4.0-11.0)
[2017-02-13 12:17] LABS: CALCIUM 9.2 mg/dL (8.5-10.1); CREATININE 1.7 mg/dL (0.7-1.3); INR 1.2; POTASSIUM 3.4 mmol/L (3.5-5.1)
[2017-02-13 13:56] LABS: ABG SAMPLE TYPE ARTERIAL; BE(vivo) -2.5 mmol/L (-2 to +3); HCO3 22.1 mmol/L (22.0-26.0); O2(CT) 11.2 mL/dL (15.0-23.0); PCO2 37.2 mmHg (35.0-45.0); pH 7.391 (7.360-7.450); sO2 86.7 % (92.0-98.0); tCO2 23.2 mmol/L (24.0-30.0)
[2017-02-13 13:57] LABS: Face Shield 95% %; LACTATE 3.67 mmol/L (0.5-2.0); O2Hb 84.6 % (92.0-98.0); PO2 51.9 mmHg (80.0-100.0); STICK SITE LINE
[2017-02-13 15:09] LABS: ABG SAMPLE TYPE ARTERIAL; BE(vivo) -4.3 mmol/L (-2 to +3); HCO3 19.5 mmol/L (22.0-26.0); LACTATE 3.33 mmol/L (0.5-2.0); O2(CT) 11.9 mL/dL (15.0-23.0); O2Hb 89.4 % (92.0-98.0); PCO2 31.1 mmHg (35.0-45.0); PO2 59.4 mmHg (80.0-100.0); pH 7.416 (7.360-7.450); sO2 91.5 % (92.0-98.0); tCO2 20.5 mmol/L (24.0-30.0)
[2017-02-13 15:10] LABS: STICK SITE LINE
[2017-02-13 16:36] LABS: ABG SAMPLE TYPE ARTERIAL; BE(vivo) -3.8 mmol/L (-2 to +3); O2(CT) 12.9 mL/dL (15.0-23.0); O2Hb 94.4 % (92.0-98.0); PCO2 36.8 mmHg (35.0-45.0); pH 7.374 (7.360-7.450); sO2 96.3 % (92.0-98.0); tCO2 22.1 mmol/L (24.0-30.0)
[2017-02-13 16:37] LABS: STICK SITE LINE
[2017-02-13 19:18] LABS: ABG SAMPLE TYPE ARTERIAL; BE(vivo) -4.8 mmol/L (-2 to +3); HCO3 20.2 mmol/L (22.0-26.0); O2(CT) 10.9 mL/dL (15.0-23.0); O2Hb 87.2 % (92.0-98.0); PCO2 36.5 mmHg (35.0-45.0); PO2 59.1 mmHg (80.0-100.0); sO2 89.9 % (92.0-98.0); tCO2 21.3 mmol/L (24.0-30.0)
[2017-02-13 19:19] LABS: LACTATE 3.65 mmol/L (0.5-2.0); STICK SITE LINE
[2017-02-13 19:20] LABS: ABG COMMENT POST REINTUBATION; TIDAL VOLUME 500 ml
[2017-02-13 21:00] LABS: ABG SAMPLE TYPE ARTERIAL; BE(vivo) -1.8 mmol/L (-2 to +3); HCO3 23.1 mmol/L (22.0-26.0); LACTATE 2.96 mmol/L (0.5-2.0); O2(CT) 12.3 mL/dL (15.0-23.0); O2Hb 96.6 % (92.0-98.0); PCO2 39.9 mmHg (35.0-45.0); PO2 143.7 mmHg (80.0-100.0); pH 7.381 (7.360-7.450); sO2 98.8 % (92.0-98.0); tCO2 24.4 mmol/L (24.0-30.0)
[2017-02-13 21:01] LABS: STICK SITE LINE; TIDAL VOLUME 500 ml
[2017-02-13 21:02] LABS: ABG COMMENT AC14 500 +8 100%
[2017-02-14 04:52] LABS: HEMATOCRIT 23.8 % (42.0-52.0); HEMOGLOBIN 8.1 gm/dL (14.0-18.0); MCH 31.2 pg (26.0-34.0); MCHC 33.9 g/dL (28.0-37.0); PLATELET COUNT 132 thou/uL (150-400); RBC 2.58 mil/uL (4.50-6.00); RDW 13.4 % (10.5-14.5)
[2017-02-14 04:55] LABS: MANUAL DIFF YES
[2017-02-14 05:00] LABS: CALCIUM 8.5 mg/dL (8.5-10.1); CREATININE 1.9 mg/dL (0.7-1.3); POTASSIUM 4.4 mmol/L (3.5-5.1)
[2017-02-14 05:42] LABS: ABSOLUTE NEUTROPHILS 13.3 thou/uL (1.4-8.2); TOTAL CELL COUNT 100
[2017-02-14 05:52] LABS: ABG COMMENT AC14 500 +8 60%; ABG SAMPLE TYPE ARTERIAL; BE(vivo) -0.8 mmol/L (-2 to +3); HCO3 23.4 mmol/L (22.0-26.0); LACTATE 2.28 mmol/L (0.5-2.0); O2(CT) 11.4 mL/dL (15.0-23.0); O2Hb 95.6 % (92.0-98.0); PCO2 36.6 mmHg (35.0-45.0); PO2 88.7 mmHg (80.0-100.0); STICK SITE LINE; TIDAL VOLUME 500 ml; pH 7.424 (7.360-7.450); tCO2 24.5 mmol/L (24.0-30.0)
[2017-02-14 10:44] VITALS: BP 108/51; BP 125/54; BP 158/57
[2017-02-15 04:27] LABS: HEMATOCRIT 27.3 % (42.0-52.0); HEMOGLOBIN 9.1 gm/dL (14.0-18.0); MCH 30.7 pg (26.0-34.0); MCHC 33.2 g/dL (28.0-37.0); MCV 92.4 fL (80.0-100.0); PLATELET COUNT 84 thou/uL (150-400); RBC 2.96 mil/uL (4.50-6.00); RDW 13.9 % (10.5-14.5); WBC 11.9 thou/uL (4.0-11.0)
[2017-02-15 04:36] LABS: CREATININE 1.3 mg/dL (0.7-1.3); POTASSIUM 3.8 mmol/L (3.5-5.1)
[2017-02-15 04:46] LABS: MANUAL DIFF YES
[2017-02-15 05:08] LABS: ABG SAMPLE TYPE ARTERIAL; BE(vivo) -0.9 mmol/L (-2 to +3); HCO3 22.7 mmol/L (22.0-26.0); O2(CT) 14.1 mL/dL (15.0-23.0); O2Hb 97.5 % (92.0-98.0); PCO2 33.5 mmHg (35.0-45.0); PO2 145.6 mmHg (80.0-100.0); pH 7.449 (7.360-7.450); tCO2 23.7 mmol/L (24.0-30.0)
[2017-02-15 05:09] LABS: STICK SITE LINE; TIDAL VOLUME 500 ml
[2017-02-15 06:26] LABS: ABSOLUTE NEUTROPHILS 10.4 thou/uL (1.4-8.2); TOTAL CELL COUNT 100
[2017-02-15 09:57] LABS: APTT 33.8 Seconds (24.5-32.8); INR 1.2
[2017-02-15 15:16] LABS: MAGNESIUM 2.4 mg/dL (1.8-2.4); POTASSIUM 3.7 mmol/L (3.5-5.1)
[2017-02-16] VITALS (28 sets, daily range): BP systolic 125–183; BP diastolic 42–104
[2017-02-16 05:17] LABS: ABSOLUTE NEUTROPHILS 8.3 thou/uL (1.4-8.2); BASOPHILS 0.8 % (0.0-2.0); EOSINOPHILS 0.9 % (0.0-3.0); HEMATOCRIT 26.6 % (42.0-52.0); LYMPHOCYTES 13.7 % (24.0-44.0); MCH 31.2 pg (26.0-34.0); MCHC 33.8 g/dL (28.0-37.0); MCV 92.4 fL (80.0-100.0); MONOCYTES 8.5 % (1.0-8.0); PLATELET COUNT 66 thou/uL (150-400); POLYS 76.1 % (36.0-66.0); RBC 2.88 mil/uL (4.50-6.00); RDW 13.3 % (10.5-14.5); WBC 10.9 thou/uL (4.0-11.0)
[2017-02-16 05:29] LABS: ALBUMIN 2.7 g/dL (3.4-5.0); CALCIUM 8.1 mg/dL (8.5-10.1); CREATININE 1.1 mg/dL (0.7-1.3); MAGNESIUM 2.4 mg/dL (1.8-2.4); PHOSPHORUS 2.8 mg/dL (2.5-4.9)
[2017-02-16 05:31] LABS: MANUAL DIFF NO
[2017-02-16 08:41] LABS: FIBRINOGEN 182.7 mg/dL (210-360); INR 1.2; PROTIME 12.7 Seconds (9.3-11.4)
[2017-02-16 11:35] LABS: ABG COMMENT A/C TOTAL RATE 33; ABG SAMPLE TYPE ARTERIAL; BE(vivo) -1.5 mmol/L (-2 to +3); HCO3 21.8 mmol/L (22.0-26.0); O2(CT) 14.4 mL/dL (15.0-23.0); PCO2 31.7 mmHg (35.0-45.0); PO2 125.6 mmHg (80.0-100.0); STICK SITE LINE; TIDAL VOLUME 500 ml; pH 7.456 (7.360-7.450); sO2 98.7 % (92.0-98.0); tCO2 22.8 mmol/L (24.0-30.0)
[2017-02-17] VITALS (20 sets, daily range): BP systolic 107–195; BP diastolic 39–83
[2017-02-17 05:17] LABS: ABG SAMPLE TYPE ARTERIAL; HCO3 22.2 mmol/L (22.0-26.0); LACTATE 1.59 mmol/L (0.5-2.0); O2(CT) 14.6 mL/dL (15.0-23.0); O2Hb 97.3 % (92.0-98.0); PCO2 31.6 mmHg (35.0-45.0); PO2 131.7 mmHg (80.0-100.0); pH 7.464 (7.360-7.450); sO2 98.8 % (92.0-98.0); tCO2 23.1 mmol/L (24.0-30.0)
[2017-02-17 05:18] LABS: STICK SITE LINE
[2017-02-17 05:22] LABS: TIDAL VOLUME 500 ml
[2017-02-17 05:28] LABS: ABSOLUTE NEUTROPHILS 11.6 thou/uL (1.4-8.2); BASOPHILS 0.2 % (0.0-2.0); EOSINOPHILS 0.2 % (0.0-3.0); HEMATOCRIT 28.7 % (42.0-52.0); HEMOGLOBIN 9.7 gm/dL (14.0-18.0); LYMPHOCYTES 10.6 % (24.0-44.0); MCH 31.4 pg (26.0-34.0); MCHC 33.9 g/dL (28.0-37.0); MCV 92.7 fL (80.0-100.0); MONOCYTES 10.2 % (1.0-8.0); PLATELET COUNT 74 thou/uL (150-400); POLYS 78.8 % (36.0-66.0); RBC 3.09 mil/uL (4.50-6.00); RDW 13.7 % (10.5-14.5); WBC 14.8 thou/uL (4.0-11.0)
[2017-02-17 05:30] LABS: MANUAL DIFF NO
[2017-02-17 05:47] LABS: ALBUMIN 2.9 g/dL (3.4-5.0); CALCIUM 8.6 mg/dL (8.5-10.1); CREATININE 0.8 mg/dL (0.7-1.3); MAGNESIUM 2.2 mg/dL (1.8-2.4); PHOSPHORUS 2.8 mg/dL (2.5-4.9); POTASSIUM 3.7 mmol/L (3.5-5.1)
[2017-02-17 05:48] LABS: METAMYELOCYTES 3 %; NUCLEATED RBCS 7 /100WBC
[2017-02-17 05:56] LABS: LARGE PLATELETS OCCASIONAL
[2017-02-17 05:57] LABS: PLATELET ESTIMATE DECREASED
[2017-02-17 09:21] LABS: ABG SAMPLE TYPE ARTERIAL; BE(vivo) 0.4 mmol/L (-2 to +3); HCO3 23.2 mmol/L (22.0-26.0); O2(CT) 14.9 mL/dL (15.0-23.0); O2Hb 96.7 % (92.0-98.0); PCO2 31.4 mmHg (35.0-45.0); PO2 110.8 mmHg (80.0-100.0); pH 7.487 (7.360-7.450); sO2 98.4 % (92.0-98.0); tCO2 24.2 mmol/L (24.0-30.0)
[2017-02-17 09:22] LABS: ABG COMMENT POST EXTUBATION ABG; Face Shield 40 %; STICK SITE R.RADIAL
[2017-02-17 09:51] LABS: FOLIC ACID 14.7 ng/mL (8.6-58.9)
[2017-02-17 14:33] LABS: HEMATOCRIT 26.5 % (42.0-52.0)
[2017-02-17 15:35] LABS: ABG SAMPLE TYPE ARTERIAL; BE(vivo) -1.6 mmol/L (-2 to +3); HCO3 21.8 mmol/L (22.0-26.0); LACTATE 1.84 mmol/L (0.5-2.0); O2(CT) 13.7 mL/dL (15.0-23.0); O2Hb 96.7 % (92.0-98.0); PCO2 31.7 mmHg (35.0-45.0); PO2 117.4 mmHg (80.0-100.0); pH 7.455 (7.360-7.450); sO2 98.5 % (92.0-98.0); tCO2 22.8 mmol/L (24.0-30.0)
[2017-02-17 15:37] LABS: Face Shield 35 %; STICK SITE L.RADIAL
[2017-02-17] MEDS ORDERED: HUMALOG100 UNIT/1 SUBQ (17:06)
[2017-02-17] MEDS ORDERED: ASPIRIN325 PER TUBE (17:06)
[2017-02-17] MEDS ORDERED: PACERONE 200 M200 M1 PO (17:06)
[2017-02-17] MEDS ORDERED: HYDRALAZINE20 MG/M1 IV PUSH (17:06)
[2017-02-17] MEDS ORDERED: DUONEB 2.5-0.5 M3 ML INH (17:06)
[2017-02-17] MEDS ORDERED: LOPRESSOR25 PO (17:06)
[2017-02-17 18:06] LABS: HEPATITIS C VIRUS AB <0.1 (0.0-0.9)
== END 2017-02-17 17:47 | disposition short-term general hospital (02) | DRG 228 ==
LOC: 2N 11:10 → ICU 17:03
PROVIDERS: Anesthesiology; Hospitalist; Internal Medicine; Internal Medicine Endocrinology, Diabetes & Metabolism; Internal Medicine Hematology & Oncology; Internal Medicine Nephrology; Internal Medicine Pulmonary Disease; Nurse Practitioner; Thoracic Surgery (Cardiothoracic Vascular Surgery)
PROC: 02110Z9 Bypass Coronary Artery, Two Arteries from Left Internal Mammary, Open Approach (ICD-10-PCS; principal; 2017-02-12)
PROC: 02L70CK Occlusion of Left Atrial Appendage with Extraluminal Device, Open Approach (ICD-10-PCS; principal; 2017-02-12)
PROC: 30233L1 Transfusion of Nonautologous Fresh Plasma into Peripheral Vein, Percutaneous Approach (ICD-10-PCS; principal; 2017-02-12)
PROC: 5A1221Z Performance of Cardiac Output, Continuous (ICD-10-PCS; principal; 2017-02-12)
PROC: 021009W Bypass Coronary Artery, One Artery from Aorta with Autologous Venous Tissue, Open Approach (ICD-10-PCS; principal; 2017-02-12)
PROC: 02580ZZ Destruction of Conduction Mechanism, Open Approach (ICD-10-PCS; principal; 2017-02-12)
PROC: 30233K1 Transfusion of Nonautologous Frozen Plasma into Peripheral Vein, Percutaneous Approach (ICD-10-PCS; principal; 2017-02-12)
PROC: 30233R1 Transfusion of Nonautologous Platelets into Peripheral Vein, Percutaneous Approach (ICD-10-PCS; principal; 2017-02-12)
PROC: 06BQ4ZZ Excision of Left Saphenous Vein, Percutaneous Endoscopic Approach (ICD-10-PCS; principal; 2017-02-12)
PROC: 0BH17EZ Insertion of Endotracheal Airway into Trachea, Via Natural or Artificial Opening (ICD-10-PCS; 2017-02-13)
PROC: 5A09357 Assistance with Respiratory Ventilation, Less than 24 Consecutive Hours, Continuous Positive Airway Pressure (ICD-10-PCS; 2017-02-13)
PROC: 02HV33Z Insertion of Infusion Device into Superior Vena Cava, Percutaneous Approach (ICD-10-PCS; 2017-02-13)
PROC: 5A1945Z Respiratory Ventilation, 24-96 Consecutive Hours (ICD-10-PCS; 2017-02-13)
PROC: 30233N1 Transfusion of Nonautologous Red Blood Cells into Peripheral Vein, Percutaneous Approach (ICD-10-PCS; 2017-02-14)
PROC: 0W9930Z Drainage of Right Pleural Cavity with Drainage Device, Percutaneous Approach (ICD-10-PCS; 2017-02-14)
PROC: 04CM3ZZ Extirpation of Matter from Right Popliteal Artery, Percutaneous Approach (ICD-10-PCS; 2017-02-17)
PROC: 04CK3ZZ Extirpation of Matter from Right Femoral Artery, Percutaneous Approach (ICD-10-PCS; 2017-02-17)
DX: I25.110 Atherosclerotic heart disease of native coronary artery with unstable angina pectoris (principal); J96.01 Acute respiratory failure with hypoxia; G92 Toxic encephalopathy; I48.92 Unspecified atrial flutter; N17.9 Acute kidney failure, unspecified; D62 Acute posthemorrhagic anemia; E87.0 Hyperosmolality and hypernatremia; J90 Pleural effusion, not elsewhere classified; J94.2 Hemothorax; I47.1 Supraventricular tachycardia; Z99.11 Dependence on respirator [ventilator] status; K21.9 Gastro-esophageal reflux disease without esophagitis; I10 Essential (primary) hypertension; I25.5 Ischemic cardiomyopathy; I48.91 Unspecified atrial fibrillation; K22.70 Barrett's esophagus without dysplasia; R73.9 Hyperglycemia, unspecified; I95.9 Hypotension, unspecified; D69.6 Thrombocytopenia, unspecified; N40.0 Benign prostatic hyperplasia without lower urinary tract symptoms; K44.9 Diaphragmatic hernia without obstruction or gangrene; E03.9 Hypothyroidism, unspecified; T44.7X5A Adverse effect of beta-adrenoreceptor antagonists, initial encounter; I73.9 Peripheral vascular disease, unspecified; Y92.89 Other specified places as the place of occurrence of the external cause; Z85.038 Personal history of other malignant neoplasm of large intestine; Z90.79 Acquired absence of other genital organ(s); Z82.49 Family history of ischemic heart disease and other diseases of the circulatory system
CPT/HCPCS: 10078; 10081; 27000; 47000; 47001; 47002; 47297; 48888; 50010; 50101; 50249; 50318; 50386; 50409; 50417; 50456; 50482; 50497; 50662; 50668; 51165; 51301; 52131; 52190; 52314; 53327; 54118; 55022; 55264; 56524; 56525; 56526; 56527; 56528; 56531; 56533; 56534; 56660; 57093; 62110; 62900; 62950